=== PATIENT | female | born 1960 | race Caucasian/White ===

== ENCOUNTER 2016-05-17 23:36 | Inpatient (IN) | payer MEDICARE, OTHER ==
--- NOTE | ~2016-05-17 | CN ---
Consultation Report [facility] [address] [place]. [address] NAME: PORFIRIO WILKINSON : 58 STATUS : ADM IN PAT#: [id number] AGE: 56 ADM/REG DATE : 05/17/16 MR#: [id number] REPORT SERV DATE: 05/18/16 DICTATED BY: SANDEEP ALBRECHT DATE: 05/18/16 REPORT STATUS : Draft TRANSCRIBED BY: MODL DATE: 05/18/16 GI CONSULTATION DATE OF CONSULTATION: 05/18/2016 REASON FOR CONSULTATION: Evaluation and management of anemia, Hemoccult-positive stools, and questionable GI bleeding. HISTORY OF PRESENT ILLNESS: Ms Wilkinson is a very pleasant 56-year-old female patient, known to Dr. Vimal Rahman in the outpatient setting, who presented to [facility] on 05/17/2016 with a chief complaint of weakness and fatigue. She reports that she had been to [facility] emergency room with a complaint of increasing fatigue over the last 72 hours. She states that she had labs drawn by one of her primary care providers and was found to have a hemoglobin of 6.6. She was sent over to [facility] and did receive 1 unit of packed red blood cells with only increased of her blood count to 6.7. She states that she has been feeling weak for several days, close to a week. Increasing shortness of breath and fatigue on exertion. Unable to complete her activities of daily living. She states that she has noticed some recent dark stools. She was found to be grossly Hemoccult positive in the emergency room. Therefore, GI consultation was requested. She has a history of rectal cancer diagnosed in 2013, T1 N0 with a transanal excision by Dr. Cavazos in November 2013. Her last colonoscopy was done in November of 2014. She had colon polyps which were removed as scar tissue in the rectum from her previous surgery. She has never had an upper endoscopy. She states that she has had some minimal nausea, but no emesis. No heartburn or indigestion. No trouble swallowing. She denies seeing any dipak blood per rectum secondary to her labs as well as Hemoccult-positive stools. We will plan to perform EGD and colonoscopy tomorrow. The risks, benefits, alternatives, and complications were detailed for her to include, but not limited to risk of bleeding, perforation, infection, reaction to medications, as well as cardiac and pulmonary side effects. She is agreeable to proceed. PAST MEDICAL HISTORY: Positive for end-stage renal disease, on hemodialysis; chronic back pain; hypertension; rectal cancer status post excision; pulmonary infiltrates; tobacco abuse; migraine headaches; cardiac stents, on Eliquis; spinal fusion; appendectomy; hysterectomy; fistula placement; type 2 diabetes, diet controlled; benign thyroid biopsy; and anemia of chronic disease. SOCIAL HISTORY: Positive for tobacco. Negative for alcohol. Negative for illicits. She lives independently. FAMILY HISTORY: Noncontributory from a GI standpoint. ALLERGIES: LEVAQUIN. HOME MEDICATIONS: Zyloprim; Norvasc; Eliquis, her last dose of Eliquis should be noted to be Consultation Report [address] [place]. [address] NAME: PORFIRIO WILKINSON : 58 STATUS : ADM IN [facility]#: [id number] AGE: 56 ADM/REG DATE : 05/17/16 MR#: [id number] REPORT SERV DATE: 05/18/16 DICTATED BY: SANDEEP ALBRECHT DATE: 05/18/16 REPORT STATUS : Draft TRANSCRIBED BY: GEORGE DATE: 05/18/16Saturday night, 05/16/2016; aspirin; Lipitor; PhosLo; Coreg; Sensipar; Pepcid; Prinivil; Renvela; and sodium bicarbonate. REVIEW OF SYSTEMS: A 10-point review of systems has been obtained with pertinent positives being addressed in the history of present illness. PHYSICAL EXAMINATION: VITAL SIGNS: Temperature 97.9, pulse 81, respirations 15, and blood pressure 135/63. NEUROLOGIC: Reveals an alert female, resting in bed. No focal deficits. GENERAL: Cooperative, in no apparent distress. Awake, alert, and oriented x3. HEAD, EARS, EYES, NOSE, AND THROAT: Anicteric. Pupils are equal, round, and reactive to light and accommodation. Normocephalic and atraumatic. NECK: No JVD. No palpable nodes. LUNGS: Coarse throughout with normal respiratory effort exhibited. CARDIOVASCULAR SYSTEM: Regular rate and rhythm. ABDOMEN: Soft, nontender, and nondistended. No rebound, guarding or organomegaly elicited on exam. Active bowel sounds in all four quadrants. EXTREMITIES: No edema. Normal distal pulses. Left upper arm fistula with dressing noted. SKIN: Warm, dry, and intact. PERTINENT LABORATORY DATA: Sodium 142, potassium 3.8, BUN is 26, and creatinine 3.98. White count is 7.7, hemoglobin 6.6, and hematocrit 22.0. She had a hemoglobin in January of 12.6; but in November of 2015, she had a hemoglobin of 6.7. ASSESSMENT: 1. Acute blood loss anemia with a history of chronic anemia. 2. Hemoccult-positive stools. 3. Weakness. 4. History of rectal cancer in 2013 status post resection. 5. End-stage renal disease with hemodialysis. 6. Colon polyp history. PLAN: 1. The patient will have EGD and colonoscopy on 05/19/[address] Edwards. 2. Eliquis has been held since Saturday night. 3. We will transfuse if hemoglobin is less than 7. 4. The patient will undergo bowel prep today. N.p.o. after midnight. Other recommendations to follow endoscopy. PAZ/GEORGE Sandeep Consultation Report [address] [place]. [address] NAME: PORFIRIO WILKINSON : 58 STATUS : ADM IN [facility]#: [id number] AGE: 56 ADM/REG DATE : 05/17/16 MR#: [id number] REPORT SERV DATE: 05/18/16 DICTATED BY: SANDEEP ALBRECHT DATE: 05/18/16 REPORT STATUS : Draft TRANSCRIBED BY: GEORGE DATE: 05/18/16 RON Veras / [id number] CC: Daniel Mcknight M.D.
--- NOTE | ~2016-05-17 | HP ---
History And Physical [facility] [address] [place]. [address] NAME: PORFIRIO MADRID : 58 STATUS : ADM IN PAT#: [id number] AGE: 56 ADM/REG DATE : 05/17/16 MR#: [id number] REPORT SERV DATE: 05/18/16 DICTATED BY: ASHU GOODSON DATE: 05/18/16 REPORT STATUS : Draft TRANSCRIBED BY: MODL DATE: 05/18/16 DATE OF ADMISSION: 05/17/2016 REASON FOR ADMISSION: End-stage renal disease, possible GI bleed. HISTORY OF PRESENT ILLNESS: This is a very pleasant, 56-year-old, female patient who dialyzes on a Saturday, , Saturday schedule at [facility]. She reports to [facility] Emergency Department initially with complaint of increasing fatigue and weakness times 48-72 hours. She felt that "her blood was low" and in fact her hemoglobin was measured at 6.6. She did receive transfusion of 1 unit of packed red cells at [facility] Emergency Department and was placed here at [facility] for further workup and supportive care. She reports this morning to the Dialysis Unit with a hemoglobin now measuring at 6.7. She is awake and alert. Denies current chest pain, nausea, vomiting, or diarrhea. PAST MEDICAL HISTORY: Includes end-stage renal disease, dialysis Saturday, , Saturday via left upper extremity access at [facility]. Also includes chronic back pain, hypertension and a previous diagnosis of T1 N0 rectal cancer with transanal excision in 11/2013 with no continuing followup per the patient. REVIEW OF SYSTEMS: Completed. Please see HPI for pertinent details. SOCIAL HISTORY: Positive for tobacco. No EtOH. No illicit drugs. FAMILY HISTORY: Noncontributory and not reviewed during this consultation at admission. ALLERGIES: SHE LISTS ALLERGIES TO LEVAQUIN. ACTIVE MEDICATIONS: Zyloprim 100 mg p.o. daily, Norvasc 10 mg p.o. at bedtime, Eliquis 5 mg p.o. b.i.d., ASA 81 mg p.o. daily, atorvastatin 40 mg p.o. daily, PhosLo 667 mg 3 tabs with meals t.i.d., Coreg 25 mg p.o. b.i.d., Sensipar 30 mg p.o. daily, Pepcid 20 mg daily, Prinivil 40 mg p.o. b.i.d., Renvela 1600 mg p.o. t.i.d., and sodium bicarbonate 650 mg p.o. daily. PHYSICAL EXAMINATION: VITAL SIGNS: Blood pressure 151/67, temperature 98.5, respiratory rate 18. She is 94% on room air. GENERAL: She is awake, alert, oriented, no acute distress during my evaluation, lying in bed in the dialysis unit. HEENT: Normocephalic, atraumatic. Normal ocular movements. No scleral icterus or conjunctival pallor is appreciated. NECK: Supple without thyromegaly. No JVD or mass. CHEST: Shows positive S1 and S2. No rubs or gallops. LUNGS: Diminished, but clear to auscultation throughout with normal expansion and effort bilaterally. History And Physical [address] [place]. [address] NAME: PORFIRIO MADRID : 58 STATUS : ADM IN [facility]#: [id number] AGE: 56 ADM/REG DATE : 05/17/16 MR#: [id number] REPORT SERV DATE: 05/18/16 DICTATED BY: ASHU GOODSON DATE: 05/18/16 REPORT STATUS : Draft TRANSCRIBED BY: GEORGE DATE: 05/18/16 GI: Shows positive bowel sounds in all four quadrants. No appreciable mass or tenderness. : Examination is deferred. EXTREMITIES: Show positive pulses to all four extremities. No clubbing, cyanosis, or edema. There is access in her left upper extremity with palpable bruit and thrill. NEUROLOGIC: She appears to be grossly intact. Nonfocal. SKIN: Warm, dry, and intact visualized surfaces. No rashes, lesions or ecchymosis. She is of appropriate mood and affect. LABORATORY DATA: Pertinent laboratories and imaging to this evaluation are as follows: White blood cell count 7.7, RBC 2.23, hemoglobin 6.7, hematocrit 22.0, platelets 171. Comprehensive metabolic panel: Sodium 142, potassium 3.8, chloride 105, CO2 of 26, BUN 26, creatinine 3.98. Reflected GFR at 12 mL/min. Calcium 8.8, phosphorus 4.7, albumin 2.6. ALT and AST at 17 and 18 respectively. Alkaline phos 82. IMPRESSION AND PLAN: This is an end-stage renal disease patient admission to [facility] with recent complaint of fatigue and weakness with probable blood loss with hemoglobin responding minimally to 6.7 from 6.6 with infusion of 1 unit of packed red cells at [facility] now transitioned to [facility] with plans for 2 hours of hemodialysis today with transfusion of 2 units of packed red cells during her dialysis treatment. We will continue monitoring her H and H serially q.[address] parameters for transfusion. We will also continue her Protonix drip, hold her ASA and Eliquis and ask colleagues in GI Services to evaluate this patient for possible further workup and supportive care from their service. The patient will be held n.p.o. until that point, protect her fistula in extremity with usual protocols. We will avoid electrolyte protocol and place her on strict I's and O's. Further modification of treatment plan may be made based on clinical presentation of patient, laboratory results, further consultation with renal attending. We appreciate GI Services input and direction and assistance with this patient's care. DICTATED BY: Mario Garcia NP JR/GEORGE Ashu Goodson M.D. / [id number] CC: Paolo Mcmullen M.D. Avtar Parikh M.D.
--- NOTE | ~2016-05-17 | EGD ---
EGD REPORT [facility] [address] [place]. [address] NAME: KAYLEE WILKINSON : 58 STATUS : ADM IN PAT#: [id number] AGE: 56 ADM/REG DATE : 05/17/16 MR#: [id number] REPORT SERV DATE: 05/19/16 DICTATED BY: LENIN NEWMAN DATE: 05/19/16 REPORT STATUS : Draft TRANSCRIBED BY: [facility] DATE: 05/19/16 Endoscopy Center Patient Name: Kyalee Wilkinson Date of : 1960 Attending MD: LENIN NEWMAN MD Procedure Date No Time: 05/19/2016 Procedure: Upper GI endoscopy Indications: Melena; Heme positive anemia; Pepcid; Eliquis. Patient Profile: Informed consent was obtained from the patient by me prior to the procedure. Risks, benefits, and alternatives were discussed including the risk of bleeding, perforation, infection, reaction to medicine, missed lesion, and cardiopulmonary complications. Referring MD: VAHE GOLDEN MD Medicines: Monitored Anesthesia Care Complications: No immediate complications. Procedure: Pre-Anesthesia Assessment: - ASA Grade Assessment: IV - A patient with severe systemic disease that is a constant threat to life. After obtaining informed consent, the endoscope was passed under direct vision. Throughout the procedure, the patient's blood pressure, pulse, and oxygen saturations were monitored continuously. The GIF [id number] [id number] was introduced through the mouth, and advanced to the second part of duodenum. The endoscope was withdrawn with careful examination all mucosal surfaces including retroflexion stomach. The upper GI endoscopy was accomplished without difficulty. The patient tolerated the procedure well. Findings: The 2nd part of the duodenum was normal. Biopsies were taken with a cold forceps for histology. Patchy mildly erythematous mucosa with multiple prominent folds found in the duodenal bulb. Biopsies were taken with a cold forceps for histology. Diffuse mild inflammation was found in the gastric body and in the gastric antrum. Biopsies were taken with a cold forceps for histology. The cardia and gastric fundus were normal. The Z-line was irregular, few small 0.5cm tongues no nodules. Biopsies were taken with a cold forceps for histology. The examined esophagus was normal. A single 7 mm sessile polyp was found in the gastric body. Biopsies were taken with a cold forceps for histology. Impression: - Normal 2nd part of the duodenum. Biopsied. EGD REPORT [address] [address] NAME: KAYLEE WILKINSON : 58 STATUS : ADM IN [facility]#: [id number] AGE: 56 ADM/REG DATE : 05/17/16 MR#: [id number] REPORT SERV DATE: 05/19/16 DICTATED BY: LENIN NEWMAN DATE: 05/19/16 REPORT STATUS : Draft TRANSCRIBED BY: [employer] DATE: 05/19/16 - Erythematous duodenopathy. Biopsied. - Gastritis. Biopsied. - Normal cardia and gastric fundus. - Z-line irregular,. Biopsied. - Normal esophagus. - A single gastric polyp. Biopsied. Recommendation: - Await pathology results. - Pantoprazole daily. Procedure Code(s): --- Professional --- 14107, Esophagogastroduodenoscopy, flexible, transoral; with biopsy, single or multiple Diagnosis Code(s): --- Professional --- K31.89, Other diseases of stomach and duodenum K29.70, Gastritis, unspecified, without bleeding K22.8, Other specified diseases of esophagus K31.7, Polyp of stomach and duodenum K92.1, Melena CPT copyright 2013 [employer]. All rights reserved. The codes documented in this report are preliminary and upon ship engines operating engineer review may be revised to meet current compliance requirements. LENIN NEWMAN MD 05/19/2016 8:44 AM This report has been signed electronically. Number of Addenda: 0 Note Initiated On: 05/19/2016 8:25 AM Scope Withdrawal Time 0 hours 0 minutes 0 seconds [address] [place] [address]
--- NOTE | ~2016-05-17 | EGD ---
EGD REPORT [facility] [address] [place] [address] NAME: KAYLEE WILKINSON : 58 STATUS : ADM IN PAT#: [id number] AGE: 56 ADM/REG DATE : 05/17/16 MR#: [id number] REPORT SERV DATE: 05/19/16 DICTATED BY: LENIN NEWMAN DATE: 05/19/16 REPORT STATUS : Draft TRANSCRIBED BY: [facility] DATE: 05/19/16 Endoscopy Center Patient Name: Kaylee Wilkinson Date of : 1960 Attending MD: LENIN NEWMAN MD Procedure Date No Time: 05/19/2016 Procedure: Colonoscopy Indications: Heme positive stool; Eliquis h/o CAD/stent more than one year ago. Patient Profile: Informed consent was obtained from the patient by me prior to the procedure. Risks, benefits, and alternatives were discussed including the risk of bleeding, perforation, infection, reaction to medicine, missed lesion, and cardiopulmonary complications. Referring MD: ELIZABETH PRASAD, VAHE PANDA MD Medicines: Monitored Anesthesia Care Complications: No immediate complications. Procedure: Pre-Anesthesia Assessment: - ASA Grade Assessment: IV - A patient with severe systemic disease that is a constant threat to life. After I obtained informed consent, the scope was passed under direct vision. Throughout the procedure, the patient's blood pressure, pulse, and oxygen saturations were monitored continuously. The PCF [id number] was introduced through the anus and advanced to the cecum, identified by appendiceal orifice and ileocecal valve. The colonoscope was slowly withdrawn with careful examination all mucosal surfaces including specific attention around flexures and tip deflection behind folds; retroflexion performed in rectum. The colonoscopy was performed without difficulty. The patient tolerated the procedure well. The quality of the bowel preparation was adequate. The ileocecal valve, appendiceal orifice and rectum were photographed. Findings: A localized area of mildly erythematous mucosa was found in the ascending colon. Biopsies were taken with a cold forceps for histology. A sessile polyp was found in the proximal transverse colon. The polyp was 10 mm in size. The polyp was removed with a hot snare. Resection and retrieval were complete. A sessile polyp was found in the rectum. The polyp was 5 mm in size. The polyp was removed with a cold biopsy forceps. Resection and retrieval were complete. Green contents throughout, no blood. EGD REPORT [address] [address] NAME: KAYLEE WILKINSON : 58 STATUS : ADM IN [facility]#: [id number] AGE: 56 ADM/REG DATE : 05/17/16 MR#: [id number] REPORT SERV DATE: 05/19/16 DICTATED BY: LENIN NEWMAN DATE: 05/19/16 REPORT STATUS : Draft TRANSCRIBED BY: [employer] DATE: 05/19/16 Impression: - Erythematous mucosa in the ascending colon. Biopsied. - One 10 mm polyp in the proximal transverse colon. Resected and retrieved. - One 5 mm polyp in the rectum. Resected and retrieved. Recommendation: - Await pathology results. - Repeat colonoscopy for surveillance based on pathology results. - Hold Eliquis 10 days; ASA OK. - F/u Dr. Panda for outpatient pillcam. Procedure Code(s): --- Professional --- 64872, Colonoscopy, flexible, proximal to splenic flexure; with removal of tumor(s), polyp(s), or other lesion(s) by snare technique 57651, 59, Colonoscopy, flexible, proximal to splenic flexure; with biopsy, single or multiple Diagnosis Code(s): --- Professional --- K63.89, Other specified diseases of intestine K62.1, Rectal polyp D12.3, Benign neoplasm of transverse colon R19.5, Other fecal abnormalities CPT copyright 2013 [employer]. All rights reserved. The codes documented in this report are preliminary and upon assistant department manager review may be revised to meet current compliance requirements. LENIN NEWMAN MD 05/19/2016 9:18 AM This report has been signed electronically. Number of Addenda: 0 Note Initiated On: 05/19/2016 8:18 AM Scope Withdrawal Time 0 hours 18 minutes 31 seconds
[~2016-05-17 23:36] MED LIST: APRES25 PO; ASA5GR PO; ASAB PO; CAT2 PO; COLCRYS0.6 MG PO; COREG12 PO; COREG25 PO; COREG6 PO; ELIQUIS 5 MG TAB5 MG PO; HALF81 PO; IRON; LIPITOR20 PO; LIPITOR40 PO; LISINOPRIL40 MG PO; LOP50 PO; NORCO1 TA1 PO; NORV10 PO; PEP20 PO; PEPCID40 MG OR; PHOSLO PO; PRAVAC PO; PRIN20 PO; RENVELA800 MG PO; SENSIPAR30 M1 PO; SENSIPAR30 MG OR; SEVE800T PO; SODBICAR10 PO; TUMS E-X750 M2 PO; Z100 PO; ZOCOR20 PO
[2016-05-18 07:06] LABS: BASOPHILS 2.1 %; BASOPHILS ABSOLUTE 0.16 10/3/uL (0.0-0.16); EOSINOPHILS 3.4 %; EOSINOPHILS ABSOLUTE 0.26 10/3/uL (0.0-0.53); IMMATURE GRANULOCYTES 0.4 %; IMMATURE GRANULOCYTES ABSOLUTE 0.03 10/3/uL (0.0-0.11); LYMPHOCYTES 23.8 %; LYMPHOCYTES ABSOLUTE 1.83 10/3/uL (0.67-4.30); MEAN CORPUS HGB CONC 30.5 g/dL (32.0-36.0); MEAN CORPUSCULAR VOLUME 98.7 fL (80-100); MEAN PLATELET VOLUME 9.8 fL (9.2-13.0); MONOCYTES 13.5 %; MONOCYTES ABSOLUTE 1.04 10/3/uL (0.21-1.20); NEUTROPHILS 56.8 %; NEUTROPHILS ABSOLUTE 4.38 10/3/uL (2.02-8.40); PLATELET COUNT 171 10/3/uL (150-400); RBC DISTRIBUTION WIDTH 18.3 % (12.0-16.0); RED CELL COUNT 2.23 10/6/uL (4.0-5.6); WHITE BLOOD CELLS 7.7 10/3/uL (4.5-10.5)
[2016-05-18 07:18] LABS: HEMOGLOBIN 6.7 g/dL (12.0-16.0)
[2016-05-18 07:20] LABS: MANUAL DIFF NO %
[2016-05-18 07:24] LABS: A/G RATIO 0.7 (0.7-1.9); ALBUMIN 2.6 G/DL (3.5-5.0); CALCIUM, SERUM 8.8 MG/DL (8.5-10.4); CHLORIDE, SERUM 105 MMOL/L (96-112); GLOBULIN 3.5 G/DL (2.5-4.1); POTASSIUM, SERUM 3.8 MMOL/L (3.5-5.3); SGOT(AST) 18 U/L (5-40); SGPT(ALT) 17 U/L (5-65); SODIUM, SERUM 142 MMOL/L (135-148); TOTAL BILIRUBIN 0.5 MG/DL (0-1.2); TOTAL PROTEIN 6.1 G/DL (6.0-8.5)
[2016-05-18 07:26] LABS: ALKALINE PHOSPHATASE 82 U/L (45-117); BUN (BLOOD UREA NITROGEN) 26 MG/DL (6-23); CO2 (CARBON DIOXIDE) 26 MMOL/L (24-34); CREATININE 3.98 MG/DL (0.55-1.02); GFR AFRICAN AMERICAN 14 ML/MIN (>=60); GFR NON AFRICAN AMERICAN 12 ML/MIN (>=60); GLUCOSE, SERUM 96 MG/DL (60-99); PHOSPHORUS, SERUM 4.7 MG/DL (2.5-4.5)
[2016-05-18 16:27] LABS: HEMATOCRIT 32.8 % (36.0-48.0); HEMOGLOBIN 10.9 g/dL (12.0-16.0)
[2016-05-18 22:40] LABS: HEMOGLOBIN 11.4 g/dL (12.0-16.0)
[2016-05-19 08:46] LABS: INTERNATIONAL NORMAL RATI 1.2 UNITS (-); PROTIME (NOT ORD) 15.4 SEC (12.0-14.5)
[2016-05-19 08:48] LABS: BASOPHILS 1.1 %; EOSINOPHILS 4.2 %; EOSINOPHILS ABSOLUTE 0.37 10/3/uL (0.0-0.53); HEMOGLOBIN 10.3 g/dL (12.0-16.0); IMMATURE GRANULOCYTES 0.2 %; IMMATURE GRANULOCYTES ABSOLUTE 0.02 10/3/uL (0.0-0.11); MEAN CORPUSCULAR HEMOGLOB 29.5 pg (26.0-34.0); MONOCYTES 12.1 %; MONOCYTES ABSOLUTE 1.07 10/3/uL (0.21-1.20); NEUTROPHILS 64.4 %; NEUTROPHILS ABSOLUTE 5.71 10/3/uL (2.02-8.40); PLATELET COUNT 173 10/3/uL (150-400); RBC DISTRIBUTION WIDTH 21.4 % (12.0-16.0); WHITE BLOOD CELLS 8.9 10/3/uL (4.5-10.5)
[2016-05-19 08:51] LABS: ALBUMIN 2.9 G/DL (3.5-5.0); BUN (BLOOD UREA NITROGEN) 15 MG/DL (6-23); CALCIUM, SERUM 9.7 MG/DL (8.5-10.4); CHLORIDE, SERUM 104 MMOL/L (96-112); CO2 (CARBON DIOXIDE) 27 MMOL/L (24-34); CREATININE 3.92 MG/DL (0.55-1.02); GFR AFRICAN AMERICAN 14 ML/MIN (>=60); GFR NON AFRICAN AMERICAN 12 ML/MIN (>=60); GLUCOSE, SERUM 98 MG/DL (60-99); PHOSPHORUS, SERUM 3.8 MG/DL (2.5-4.5); POTASSIUM, SERUM 3.9 MMOL/L (3.5-5.3); SODIUM, SERUM 144 MMOL/L (135-148)
[2016-05-19 08:53] LABS: HEMATOCRIT 30.5 % (36.0-48.0); MANUAL DIFF NO %; MEAN CORPUS HGB CONC 33.8 g/dL (32.0-36.0); MEAN CORPUSCULAR VOLUME 87.4 fL (80-100); RED CELL COUNT 3.49 10/6/uL (4.0-5.6)
[2016-05-19 12:01] LABS: BASOPHILS 1.5 %; BASOPHILS ABSOLUTE 0.12 10/3/uL (0.0-0.16); EOSINOPHILS 4.3 %; EOSINOPHILS ABSOLUTE 0.35 10/3/uL (0.0-0.53); HEMATOCRIT 32.6 % (36.0-48.0); HEMOGLOBIN 10.8 g/dL (12.0-16.0); IMMATURE GRANULOCYTES 0.4 %; IMMATURE GRANULOCYTES ABSOLUTE 0.03 10/3/uL (0.0-0.11); LYMPHOCYTES 16.6 %; LYMPHOCYTES ABSOLUTE 1.36 10/3/uL (0.67-4.30); MANUAL DIFF NO %; MEAN CORPUS HGB CONC 33.1 g/dL (32.0-36.0); MEAN CORPUSCULAR HEMOGLOB 29.2 pg (26.0-34.0); MEAN CORPUSCULAR VOLUME 88.1 fL (80-100); MEAN PLATELET VOLUME 10.2 fL (9.2-13.0); MONOCYTES 9.5 %; MONOCYTES ABSOLUTE 0.78 10/3/uL (0.21-1.20); NEUTROPHILS 67.7 %; NEUTROPHILS ABSOLUTE 5.55 10/3/uL (2.02-8.40); PLATELET COUNT 184 10/3/uL (150-400); RBC DISTRIBUTION WIDTH 21.4 % (12.0-16.0); WHITE BLOOD CELLS 8.2 10/3/uL (4.5-10.5)
[2016-10-04] MEDS ORDERED: LIPITOR40 PO (19:55)
[2016-10-04] MEDS ORDERED: SENSIPAR60 MG PO (19:55)
[2016-10-04] MEDS ORDERED: RENVELA800 MG PO (19:55)
[2016-10-04] MEDS ORDERED: PROTONIX PO (19:56)
[2016-10-04] MEDS ORDERED: PEP20 PO (19:56)
[2016-10-04] MEDS ORDERED: COREG6 PO (19:56)
[2016-10-04] MEDS ORDERED: PR25 PO (19:57)
[2016-10-04] MEDS ORDERED: LISINOPRIL40 MG PO (19:57)
[2016-10-04] MEDS ORDERED: Z100 PO (19:57)
[2016-10-04] MEDS ORDERED: ASAB PO (19:58)
[2016-10-04] MEDS ORDERED: TUMS E-X750 M2 PO (19:58)
[2016-10-04] MEDS ORDERED: SODBICAR10 PO (19:59)
== END 2016-05-19 19:04 | disposition home or self-care (01) | DRG 811 ==
LOC: 4SO 23:36
PROVIDERS: Internal Medicine Nephrology; Registered Nurse
DX: D62 Acute posthemorrhagic anemia (principal); N18.6 End stage renal disease; I12.0 Hypertensive chronic kidney disease with stage 5 chronic kidney disease or end stage renal disease; K92.1 Melena; Z99.2 Dependence on renal dialysis; G89.29 Other chronic pain; M54.9 Dorsalgia, unspecified; Z85.048 Personal history of other malignant neoplasm of rectum, rectosigmoid junction, and anus; F17.210 Nicotine dependence, cigarettes, uncomplicated; Z79.01 Long term (current) use of anticoagulants; Z79.82 Long term (current) use of aspirin; Z86.010 Personal history of colon polyps; Z90.49 Acquired absence of other specified parts of digestive tract; I25.10 Atherosclerotic heart disease of native coronary artery without angina pectoris; Z95.5 Presence of coronary angioplasty implant and graft; Z98.1 Arthrodesis status; D63.1 Anemia in chronic kidney disease; R53.1 Weakness; K29.80 Duodenitis without bleeding; K29.70 Gastritis, unspecified, without bleeding; K31.7 Polyp of stomach and duodenum; K31.89 Other diseases of stomach and duodenum; K22.8 Other specified diseases of esophagus; K63.89 Other specified diseases of intestine; K62.1 Rectal polyp; D12.3 Benign neoplasm of transverse colon; E11.65 Type 2 diabetes mellitus with hyperglycemia; Z88.1 Allergy status to other antibiotic agents
CPT/HCPCS: 36415; 71020; 80048; 80053; 80069; 82962; 83735; 84100; 85014; 85018; 85025; 85610; 85730; 86850; 86900; 86901; 86920; 88305; 88342; 93005; 99291; A9270-GY; C9113; G0257; P9016